=== PATIENT | male | born 2000 ===

== ENCOUNTER 2022-07-29 08:19 | Emergency (ER) | payer OTHER ==
[~2022-07-29] VITALS: Ht 193 cm; Wt 95.0 kg
--- NOTE | 2022-07-29 10:39 | ED EENT ---
History of Present Illness General Chief Complaint: Oral/Throat Problems Stated Complaint: WEAKNESS, VOMITING, SORE THROAT Nursing Triage Note: ARRIVED VIA AMB TO TRIAGE. STATES HE WOKE UP WITH A SORE THROAT AND FEELS LIKE IS THROAT IS CLOSING. S/O STATES HIS TONSILS ARE LARGE. Source: patient Exam Limitations: no limitations History of Present Illness Date Seen by Provider: Jul 29, 2022 Time Seen by Provider: 08:56 Initial Comments Here with report of sore throat and feelings of throat swelling. Woke up this morning with the symptoms and just feels off. States that he feels weak. Significant other reported that he looked pale this morning. He was otherwise doing okay yesterday. Denies nausea or vomiting. Denies wheezing or breathing problems but does feel chest tightness. Timing/Duration: this morning Severity: moderate Location: throat Prearrival Treatment: no prearrival treatment, over the counter meds Associated Symptoms: No cough, No fever; nasal congestion/drainage, sore throat Allergies and Home Medications Allergies Coded Allergies: No Known Drug Allergies (Unverified , 07/29/22) Patient Home Medication List Home Medication List Reviewed: Yes Review of Systems Review of Systems Constitutional: No chills, No fever Throat: pain, swelling Respiratory: No cough, No short of breath Gastrointestinal: No nausea, No vomiting Past Typccvp-Tklcgd-Mxknnx Hx Patient Social History Tobacco Use?: No Substance use?: Yes Substance type: Marijuana Alcohol Use?: No Immunizations Up To Date Second COVID19 Vaccination Junior: UNKNOWN COVID19 Vaccine Tripper: UNKNOWN Past Medical History Surgeries: No Respiratory: No Cardiac: No Neurological: No Family Medical History Reviewed Nursing Family Hx Physical Exam Vital Signs Vital Signs - First Documented 07/29/22 08:25 Temp 35.3 Pulse 86 Resp 16 B/P (MAP) 143/70 (94) Pulse Ox 99 O2 Delivery Room Air Height, Weight, BMI Height: '" Weight: lbs. oz. kg; 25.00 BMI Method: General Appearance: WD/WN, no apparent distress Ears: bilateral ear auricle normal, bilateral ear canal normal, bilateral ear TM normal Nose: other (Mild congestion) Mouth/Throat: pharynx tenderness (With erythema), tonsillar swelling; No trismus, No uvula swelling Neck: full range of motion, supple, normal inspection Cardiovascular: regular rate, rhythm, no murmur Respiratory: lungs clear, normal breath sounds Gastrointestinal: non tender, soft Neurologic/Psychiatric: alert, oriented x 3 Skin: normal color, warm/dry Progress/Results/Core Measures Results/Orders Lab Results Laboratory Tests Test 07/29/22 09:00 Range/Units Influenza Type A (RT-PCR) Not Detected Not Detecte Influenza Type B (RT-PCR) Not Detected Not Detecte SARS-CoV-2 RNA (RT-PCR) Not Detected Not Detecte Group A Streptococcus Screen NEGATIVE NEGATIVE My Orders Orders - YOCASTA DE LA CRUZ MD Rapid Strep A Screen (07/29/22 08:56) Covid 19 Inhouse Test (07/29/22 08:56) Influenza A And B By Pcr (07/29/22 08:56) Vital Signs/I&O 07/29/22 08:25 Temp 35.3 Pulse 86 Resp 16 B/P (MAP) 143/70 (94) Pulse Ox 99 O2 Delivery Room Air Blood Pressure Mean: 94 Progress Progress Note : Progress Note Seen and evaluated. We will do rapid testing for COVID, influenza and strep throat. Monitor patient. Differential diagnosis includes viral etiology, bacterial pharyngitis, COVID, influenza. 1030: COVID, influenza and strep testing are negative. Patient is actually feeling better now. Heart rate is in the 80s currently. We did discuss different options for evaluation including further work-up with labs and IV versus watching at home and OTC treatment. Patient and his significant other are both comfortable with going home at this point. Discharged home with return precautions. Patient verbalized understanding of instructions and agreement with plan. Departure Impression Primary Impression: Viral upper respiratory infection Disposition: 01 HOME, SELF-CARE Condition: Stable Departure-Patient Inst. Decision time for Depature: 10:42 Patient Instructions: Viral Upper Respiratory Infection, Adult (DC) Add. Discharge Instructions: All discharge instructions reviewed with patient and/or family. Voiced understanding. You may take Tylenol/acetaminophen 1000 mg every 8 hours as needed for fever or pain. You may take ibuprofen 600 mg every 8 hours as needed for fever or pain. If you are having significant nasal congestion, ear fullness or pain, sinus tenderness then you may use Afrin nasal spray or the generic, 12 hour relief, 2 sprays to each nostril twice daily for 3 days only and then stop. Do not use more than 3 days. Follow-up with your in a few days for recheck. Drink plenty of fluids and get plenty of rest. Return for worse pain, fever, vomiting, weakness, breathing problems or other concerns as needed. YOCASTA DE LA CRUZ MD Jul 29, 2022 10:39
[2022-07-29 10:48] VITALS: BP 143/70
== END 2022-07-29 10:48 | disposition home or self-care (01) ==
LOC: ER 08:23
DX: J06.9 Acute upper respiratory infection, unspecified (principal); Z20.822 Contact with and (suspected) exposure to COVID-19
CPT/HCPCS: 87430; 87636; 99285